=== PATIENT | female | born 1935 | race Caucasian/White ===

== ENCOUNTER 2021-04-04 04:24 | Emergency (ER) | payer MEDICARE, BC | END 2021-04-04 06:59 | disposition home or self-care (01) | LOC: JP.ED 04:24 | DX: R00.1 Bradycardia, unspecified (principal); I10 Essential (primary) hypertension; Z79.899 Other long term (current) drug therapy; Z88.2 Allergy status to sulfonamides; Z88.8 Allergy status to other drugs, medicaments and biological substances; Z88.0 Allergy status to penicillin | CPT/HCPCS: 36415; 80053; 84484; 85027; 93005; 93010; 99282; 99284-25 ==

== ENCOUNTER 2022-01-06 10:36 | Emergency (ER) | payer MEDICARE, BC ==
[2022-01-06] MEDS ORDERED: Albuterol 0.083% 2.5 MG/3 ML Neb Soln NEB ONE (13:34)
[2022-01-06 14:29] LABS: CORONAVIRUS COVID-19 NAA NEGATIVE (NEGATIVE)
== END 2022-01-06 15:13 | disposition home or self-care (01) ==
LOC: JP.ED 10:36
DX: J18.9 Pneumonia, unspecified organism (principal); Z88.0 Allergy status to penicillin; Z88.1 Allergy status to other antibiotic agents; Z88.8 Allergy status to other drugs, medicaments and biological substances; Z88.2 Allergy status to sulfonamides; Z79.899 Other long term (current) drug therapy; Z20.822 Contact with and (suspected) exposure to COVID-19
CPT/HCPCS: 0241U; 36415; 71046; 80053; 81001; 83880; 84484; 85025; 86140; 87086; 93005; 94640; 99285

== ENCOUNTER 2022-12-17 06:56 | Day surgery (SDC) | payer MEDICARE, BC ==
[2022-12-17] MEDS ORDERED: Sodium Chloride 0.9% 10 ML Syringe FLUSH PRN (08:00)
== END 2022-12-17 09:16 | disposition home or self-care (01) ==
LOC: JP.SDS 06:56
PROVIDERS: ATTEND Ophthalmology
DX: H26.9 Unspecified cataract (principal); I10 Essential (primary) hypertension; K21.9 Gastro-esophageal reflux disease without esophagitis; I48.91 Unspecified atrial fibrillation; Z88.2 Allergy status to sulfonamides; Z88.1 Allergy status to other antibiotic agents; Z88.8 Allergy status to other drugs, medicaments and biological substances
CPT/HCPCS: J3490

== ENCOUNTER 2023-01-21 08:46 | Day surgery (SDC) | payer MEDICARE, BC ==
[2023-01-21] MEDS ORDERED: Sodium Chloride 0.9% 10 ML Syringe FLUSH PRN (09:30)
== END 2023-01-21 10:15 | disposition home or self-care (01) ==
LOC: JP.SDS 08:46
PROVIDERS: ATTEND Ophthalmology
DX: H26.9 Unspecified cataract (principal)
CPT/HCPCS: 66984; J3490; V2632